=== PATIENT | male | born 1990 | race Caucasian/White ===

== ENCOUNTER 2018-07-12 14:39 | Emergency (ER) | payer OTHER ==
[2018-07-12 15:04] VITALS: BP 173/95
[2018-07-12 16:13] LABS: ANION GAP 16.6; CHLORIDE,CL 105 mmol/L (101-111); SODIUM,NA 138 mmol/L (135-145)
--- NOTE | 2018-07-12 16:15 | CR ---
Clinical history: 28-year-old male chest pain. Interpretation: Upright AP portable chest. Reasonable inspiratory effort obese male. External air sampling and monitoring leads. Normal cardiac silhouette without cephalization of vascular flow, alveolar edema or dependent effusion. No lung mass or hilar lymphadenopathy. No focal lobar pneumonia, atelectasis/collapse or pneumothorax. CONCLUSION: No acute cardiopulmonary abnormality.
--- NOTE | 2018-07-20 10:18 | EDM.PDOCBH ---
Scribed by Yany Cardona 07/12/18 1623 for Ela Wetzel NP ED HPI GENERAL MEDICAL PROBLEM - General Chief Complaint: Behavioral/Psych Stated Complaint: PANICK ATTACK/HEART ATTACK? [id number] Time Seen by Provider: 07/12/18 15:20 Source of Information: Reports: Patient, RN, RN Notes Reviewed History Limitations: Reports: No Limitations - History of Present Illness INITIAL COMMENTS - FREE TEXT/NARRATIVE: Patient presents to ER with complaint of "panic attack or heart attack". States began about 1-1/2 hours ago at work out of the blue. He complains of chest tightness, shortness of breath, felt heart racing and pulsating in arms. HE refuses any medication for anxiety. States he has had panic attacks in the past. Onset: Today Duration: Constant Location: Reports: Chest Quality: Reports: Ache Severity: Moderate Improves with: Reports: None Worsens with: Reports: None Associated Symptoms: Reports: No Other Symptoms - Related Data Allergies Allergy/AdvReac Type Severity Reaction Status Date / Time Penicillins Allergy Mild Hives Verified 07/12/18 14:56 Home Meds: Home Meds Acetaminophen [Tylenol] 650 mg PO ASDIRECTED PRN 07/09/14 [History] Ibuprofen 400 mg PO Q6HR PRN 08/09/14 [History] Levothyroxine 1 tab PO DAILY 12/17/16 [History] Past Medical History - Past Health History Medical/Surgical History: Denies Medical/Surgical History HEENT History: Reports: None Cardiovascular History: Reports: Hypertension Respiratory History: Reports: Asthma Other Respiratory History: seasonal allergies Gastrointestinal History: Reports: None Genitourinary History: Reports: None Other Musculoskeletal History: broken leg when was young. right hand fracture last week Neurological History: Reports: None Psychiatric History: Reports: Anxiety, Panic Attack Endocrine/Metabolic History: Reports: Hyperthyroidism Hematologic History: Reports: None Immunologic History: Reports: None Oncologic (Cancer) History: Reports: None Dermatologic History: Reports: None - Past Surgical History Head Surgeries/Procedures: Reports: None Social & Family History - Family History Family Medical History: Noncontributory - Tobacco Use Smoking Status *Q: Current Every Day Smoker Years of Tobacco use: 8 Packs/Tins Daily: 0.5 Second Hand Smoke Exposure: No - Caffeine Use Caffeine Use: Reports: None - Recreational Drug Use Recreational Drug Type: Reports: Marijuana/Hashish Other Recreational Drug Type: hasn't smoked for a week - Living Situation & Occupation Occupation: Employed ED ROS GENERAL - Review of Systems Review Of Systems: ROS reveals no pertinent complaints other than HPI. ED EXAM, BEHAVIORAL HEALTH - Physical Exam Exam: See Below Exam Limited By: No Limitations General Appearance: Alert, WD/WN, No Apparent Distress Eye Exam: Bilateral Eye: EOMI, Normal Inspection, PERRL Ears: Normal External Exam, Normal Canal, Hearing Grossly Normal, Normal TMs Nose: Normal Inspection, Normal Mucosa, No Blood Throat/Mouth: Normal Inspection, Normal Lips, Normal Teeth, Normal Gums, Normal Oropharynx, Normal Voice, No Airway Compromise Head: Atraumatic, Normocephalic Neck: Normal Inspection, Supple, Non-Tender, Full Range of Motion Respiratory/Chest: Other (clear but diminished) Cardiovascular: Normal Peripheral Pulses, Regular Rate, Rhythm, No Edema, No Gallop, No JVD, No Murmur, No Rub GI/Abdominal: Normal Bowel Sounds, Soft, Non-Tender, No Organomegaly, No Distention, No Abnormal Bruit, No Mass (Male) Exam: Deferred Rectal (Males) Exam: Deferred Back Exam: Normal Inspection, Full Range of Motion, NT Extremities: Normal Inspection, Normal Range of Motion, Non-Tender, Normal Capillary Refill, No Pedal Edema Neurological: Alert, Normal Mood/Affect, CN II-XII Intact, Normal Cognition, Normal Gait, Normal Reflexes, No Motor/Sensory Deficits, Oriented x 3 Psychiatric: Other (anxious) Skin Exam: Warm, Dry, Intact, Normal color, No rash COURSE, BEHAVIORAL HEALTH COMP - Course Vital Signs: Last Vital Signs Temp 97.9 F 07/12/18 14:51 Pulse 74 07/12/18 14:51 Resp 16 07/12/18 14:51 BP 173/95 H 07/12/18 15:04 Pulse Ox 97 07/12/18 14:51 Orders, Labs, Meds: Active Orders 24 hr Category Date Time Status EKG Documentation Completion [RC] STAT Care 07/12/18 15:43 Active DRUG SCREEN URINE BIORAD [URCHEM] Stat Lab 07/12/18 15:31 Ordered UA RFX ALEXANDRA AND CULT IF INDIC [URIN] Stat Lab 07/12/18 15:31 Ordered Laboratory Tests 07/12/18 07/12/18 Range/Units 15:45 15:45 WBC 8.5 (5.0-10.0) 10^3/uL RBC 5.15 (4.6-6.2) 10^6/uL Hgb 17.1 (14.0-18.0) g/dL Hct 49.7 (40.0-54.0) % MCV 96.5 (80-100) fL MCH 33.2 (27.0-34.0) pg MCHC 34.4 (33.0-35.0) g/dL Plt Count 255 (150-450) 10^3/uL Neut % (Auto) 62.0 (42.2-75.2) % Lymph % (Auto) 24.6 (20.5-50.1) % [place] % (Auto) 8.3 H (2-8) % Eos % (Auto) 4.5 H (1.0-3.0) % Baso % (Auto) 0.6 (0.0-1.0) % Sodium 138 (135-145) mmol/L Potassium 3.6 (3.6-5.0) mmol/L Chloride 105 (101-111) mmol/L Carbon Dioxide 20.0 L (21.0-31.0) mmol/L Anion Gap 16.6 BUN 10 (7-18) mg/dL Creatinine 0.9 (0.6-1.3) mg/dL Est Cr Clr Drug Dosing 120.33 mL/min Estimated GFR (MDRD) > 60 BUN/Creatinine Ratio 11.11 Glucose 90 (74-105) mg/dL Calcium 9.0 (8.4-10.2) mg/dl Total Bilirubin 0.8 (0.2-1.0) mg/dL AST 52 H (10-42) IU/L ALT 90 H (10-60) IU/L Alkaline Phosphatase 50 (42-121) IU/L Troponin I < 0.02 (0.00-0.02) ng/ml Total Protein 7.4 (6.7-8.2) g/dl Albumin 4.3 (3.2-5.5) g/dl Globulin 3.1 Albumin/Globulin Ratio 1.39 Ethyl Alcohol < 5 mg/dL Re-Assessment/Re-Exam: Chest x-ray: No cardiopulmonary disease. See rad report. Departure - Departure Time of Disposition: 16:29 Disposition: Home, Self-Care 01 Condition: Fair Clinical Impression: Panic disorder, Anxiety - Discharge Information *PRESCRIPTION DRUG MONITORING PROGRAM REVIEWED*: No *COPY OF PRESCRIPTION DRUG MONITORING REPORT IN PATIENT BELLE: No Instructions: Panic Attack, [id number], Living With Anxiety Forms: ED Department Discharge Additional Instructions: Follow up with a primary care facility regarding your blood pressure, and setting up counseling for anxiety - My Orders Last 24 Hours: My Active Orders 07/12/18 15:31 DRUG SCREEN URINE BIORAD [URCHEM] Stat UA RFX ALEXANDRA AND CULT IF INDIC [URIN] Stat 07/12/18 15:43 EKG Documentation Completion [RC] STAT - Assessment/Plan Last 24 Hours: My Active Orders 07/12/18 15:31 DRUG SCREEN URINE BIORAD [URCHEM] Stat UA RFX ALEXANDRA AND CULT IF INDIC [URIN] Stat 07/12/18 15:43 EKG Documentation Completion [RC] STAT I have read and agree with the documentation that has been completed regarding this visit. By signing this record, I attest that the documentation was completed in my physical presence and is an accurate record of the encounter.
== END 2018-07-12 16:47 | disposition home or self-care (01) ==
LOC: DL.ED 14:39
DX: F41.0 Panic disorder [episodic paroxysmal anxiety] (principal); I10 Essential (primary) hypertension; E03.9 Hypothyroidism, unspecified; F17.210 Nicotine dependence, cigarettes, uncomplicated; Z79.899 Other long term (current) drug therapy; Z88.0 Allergy status to penicillin
CPT/HCPCS: 36415; 71045; 80053; 84484; 85025; 93005; 99283; G0480

== ENCOUNTER 2019-02-23 18:26 | Emergency (ER) | payer OTHER ==
[2019-02-23] MEDS ORDERED: Codeine/Promethazine 10-6.25 MG/5 ML Syrup 5 ML UD Cup PO ONE (18:27)
[2019-02-23] MEDS ORDERED: Albuterol 6.7 GM Inhaler INH ONE ×2 (18:27→20:47)
[2019-02-23] MEDS ORDERED: Azithromycin 250 MG Tab PO ONE (18:27)
[2019-02-23 20:04] VITALS: BP 157/99; PULSE 94
[2019-02-23] MEDS ORDERED: Azithromycin 250 MG Tab ONE (20:47)
[2019-02-23] MEDS ORDERED: Codeine/Promethazine 10-6.25 MG/5 ML Syrup 5 ML UD Cup ONE (20:47)
--- NOTE | 2019-02-23 20:55 | EDM.PDOC ---
ED HPI GENERAL MEDICAL PROBLEM - General Chief Complaint: Respiratory Problem Stated Complaint: PAIN WHEN COUGHING Time Seen by Provider: 02/23/19 20:20 Source of Information: Reports: Patient History Limitations: Reports: No Limitations - History of Present Illness INITIAL COMMENTS - FREE TEXT/NARRATIVE: ED with c/o cough for 3 seeks starting after strep infection. Did better while on antibiotic and 2 days after course started to get worse, cough productive green phlegm at time. Chest riley with cough. Smoker. No fever. No hx asthma - Related Data Allergies Allergy/AdvReac Type Severity Reaction Status Date / Time Penicillins Allergy Mild Hives Verified 02/23/19 20:04 Home Meds: Home Meds Acetaminophen [Tylenol] 650 mg PO ASDIRECTED PRN 07/09/14 [History] Ibuprofen 400 mg PO Q6HR PRN 08/09/14 [History] Levothyroxine 75 mcg PO DAILY 12/17/16 [History] Past Medical History - Past Health History Medical/Surgical History: Denies Medical/Surgical History HEENT History: Reports: None Cardiovascular History: Reports: Hypertension Respiratory History: Reports: Asthma Other Respiratory History: seasonal allergies Gastrointestinal History: Reports: None Genitourinary History: Reports: None Other Musculoskeletal History: broken leg when was young. right hand fracture last week Neurological History: Reports: None Psychiatric History: Reports: Anxiety, Panic Attack Endocrine/Metabolic History: Reports: Hyperthyroidism Hematologic History: Reports: None Immunologic History: Reports: None Oncologic (Cancer) History: Reports: None Dermatologic History: Reports: None - Past Surgical History Head Surgeries/Procedures: Reports: None Social & Family History - Family History Family Medical History: Noncontributory - Tobacco Use Smoking Status *Q: Current Every Day Smoker Years of Tobacco use: 10 Packs/Tins Daily: 1 Second Hand Smoke Exposure: Yes - Caffeine Use Caffeine Use: Reports: None - Recreational Drug Use Recreational Drug Use: Yes Drug Use in Last 12 Months: Yes Recreational Drug Type: Reports: Marijuana/Hashish - Living Situation & Occupation Occupation: Employed ED ROS GENERAL - Review of Systems Review Of Systems: Comprehensive ROS is negative, except as noted in HPI. ED EXAM, GENERAL - Physical Exam Exam: See Below Exam Limited By: No Limitations General Appearance: Alert, Anxious, Mild Distress Eye Exam: Bilateral Eye: EOMI Ears: Normal External Exam, Normal TMs Nose: Normal Inspection Throat/Mouth: Inflammation Head: Atraumatic, Normocephalic Neck: Normal Inspection Respiratory/Chest: No Respiratory Distress, Decreased Breath Sounds, Rhonchi. No: Crackles, Rales Cardiovascular: Normal Peripheral Pulses, Regular Rate, Rhythm GI/Abdominal: Soft Extremities: Normal Inspection Neurological: Alert, Oriented, CN II-XII Intact, Normal Cognition Psychiatric: Normal Affect, Normal Mood Skin Exam: Warm, Dry, Intact, Normal Color Course - Vital Signs Last Recorded V/S: Last Vital Signs Temp 98.3 F 02/23/19 20:00 Pulse 94 02/23/19 20:00 Resp 18 02/23/19 20:00 BP 157/99 H 02/23/19 20:00 Pulse Ox 96 02/23/19 20:00 - Orders/Labs/Meds Meds: Medications Discontinued Medications Generic Name Dose Route Start Last Admin Trade Name Diego PRN Reason Stop Dose Admin Albuterol Confirm 02/23/19 20:47 02/23/19 20:54 Proventil Hfa Administered 02/23/19 20:48 Not Given Dose 6.7 gm INH .STK-MED ONE Azithromycin Confirm 02/23/19 20:47 02/23/19 20:54 Zithromax Administered 02/23/19 20:48 Not Given Dose 500 mg .ROUTE .STK-MED ONE Promethazine HCl/Codeine Confirm 02/23/19 20:47 02/23/19 20:54 Phenergan With Codeine Administered 02/23/19 20:48 Not Given Dose 5 ml .ROUTE .STK-MED ONE Departure - Departure Time of Disposition: 20:50 Disposition: Home, Self-Care 01 Condition: Good Clinical Impression: Cough URI (upper respiratory infection) Qualifiers: URI type: unspecified URI Qualified Code(s): J06.9 - Acute upper respiratory infection, unspecified - Discharge Information *PRESCRIPTION DRUG MONITORING PROGRAM REVIEWED*: No *COPY OF PRESCRIPTION DRUG MONITORING REPORT IN PATIENT BELLE: No Instructions: Acute Bronchitis, Adult, [id number] Forms: ED Department Discharge Additional Instructions: tessalon 200mg one every 8 hours as needed albuterol inhaler 2 puffs every 4 hours as needed azithromycin 250mg one daily x 4 days prednisone 10mg daily x 5 days phenergan with codeine 5ml at bedtime tonight humidifier muccinex, or robitussin per package instructions clinic follow up if symptoms worsen Sepsis Event Note - Evaluation Sepsis Screening Result: No Definite Risk - Focused Exam Date Exam was Performed: 02/26/19 Time Exam was Performed: 06:47
== END 2019-02-23 20:56 | disposition home or self-care (01) ==
LOC: DL.ED 18:26
DX: J06.9 Acute upper respiratory infection, unspecified (principal); I10 Essential (primary) hypertension; J45.909 Unspecified asthma, uncomplicated; F17.210 Nicotine dependence, cigarettes, uncomplicated; Z88.0 Allergy status to penicillin; Z79.899 Other long term (current) drug therapy
CPT/HCPCS: 71046; 99283; A9270